=== PATIENT | female | born 1940 | race African-American/Black ===

== ENCOUNTER 2018-08-19 18:15 | Emergency (ER) | payer SELFPAY ==
[~2018-08-19] VITALS: Ht 152.4 cm; Wt 77.0 kg
[2018-08-19 19:10] LABS: ALBUMIN 3.7 g/dL (3.4-5.0); ANION GAP 8 mmol/L (5-15); CALCIUM 9.8 mg/dL (8.5-10.1); CHLORIDE 108 mmol/L (98-107)
--- NOTE | 2018-08-19 19:11 | NUR ---
PT IN GOWN IN [facility]. DR. VALIENTE AT . PT RESTING COMFORTABLY AT THIS TIME AND VERBALIZES OF ER PROCESS AND POC. CALL LIGHT IS WITHIN REACH.
[2018-08-19 19:16] LABS: ALANINE AMINOTRANSFERASE 28 U/L (12-78); ALKALINE PHOSPHATASE 106 U/L (45-117); BILIRUBIN,TOTAL 0.6 mg/dL (0.2-1.0); CREATININE 0.66 mg/dL (0.55-1.02); TOTAL PROTEIN 7.7 g/dL (6.4-8.2); TROPONIN I < 0.015 ng/mL (0.000-0.045)
[2018-08-19 19:23] LABS: BASOPHILS # (AUTO) 0.01 x10^3/uL (0-0.1); BASOPHILS % (AUTO) 0 % (0-1); EOSINOPHILS # (AUTO) 0.19 x10^3/uL (0-0.4); EOSINOPHILS % (AUTO) 2 % (1-7); LYMPHOCYTES # (AUTO) 1.13 x10^3/uL (1-3.4); LYMPHOCYTES % (AUTO) 14 % (22-44); MD NO; MEAN CORPUSCULAR HEMOGLOBIN 25.3 pg (27.0-34.8); MEAN CORPUSCULAR HGB CONC 33.3 g/dL (32.4-35.8); MEAN CORPUSCULAR VOLUME 75.9 fL (80-100); MEAN PLATELET VOLUME 7.9 fL (7.4-10.4); MONOCYTES # (AUTO) 0.42 x10^3/uL (0.2-0.8); MONOCYTES % (AUTO) 5 % (2-9); NEUTROPHILS # (AUTO) 6.18 x10^3/uL (1.8-6.8); NEUTROPHILS % (AUTO) 78 % (42-75); PLATELET COUNT 248 x10^3/uL (130-400); RED BLOOD COUNT 5.59 x10^6/uL (3.82-5.3)
[2018-08-19] MEDS ORDERED: MAALOX/HYOSCYAMINE/LIDOCAINE 45 ML BTL PO ONE (20:00)
--- NOTE | 2018-08-19 20:01 | NUR ---
PT VSS AND UPDATED IN EMR.
[2018-08-19] MEDS ORDERED: MAALOX/HYOSCYAMINE/LIDOCAINE 45 ML BTL ONE (20:07)
[2018-08-19] MEDS ORDERED: ONDANSETRON ODT 4 MG ONE (20:15)
--- NOTE | 2018-08-19 20:17 | NUR ---
PT MEDICATED PER MAR.
[2018-08-19] MEDS ORDERED: ONDANSETRON ODT 4 MG PO ONE (20:30)
--- NOTE | 2018-08-19 21:09 | NUR ---
PT D/C WITH D/C SUMMARY AND SCRIPTS. ALL QUESTIONS ANSWERED PT DENIES ANY OTHER NEEDS PERTAINING TO THIS VISIT. PT AMBULATES TO REGISTRATION DESK WITH STEADY GAIT FOR D/C HOME WITH FAMILY.
[2018-08-19 21:10] VITALS: BP 141/81
== END 2018-08-19 21:12 | disposition home or self-care (01) ==
LOC: ED 21:06
DX: R10.13 Epigastric pain (principal); K21.9 Gastro-esophageal reflux disease without esophagitis; M19.90 Unspecified osteoarthritis, unspecified site; I70.90 Unspecified atherosclerosis; Z90.710 Acquired absence of both cervix and uterus
CPT/HCPCS: 36415; 71045; 76700; 80053; 83690; 83880; 84484; 85025; 93005; 99284